=== PATIENT | female | born 1985 | race Caucasian/White ===

== ENCOUNTER → 2016-03-08 | Outpatient (CLI) | payer OTHER ==
[~2016-03-08] MED LIST: AMOXICILLIN500 MG PO; ATIVAN1 MG PO; B-1100 M1 PO; BENADRYL25 MG PO; CALCIUM600 MG PO; CIPRO500 MG PO; CLARITIN10 MG PO; FISH OIL 10001000 MG PO; FLAGYL500 MG PO; FLUCONAZOLE100 MG PO; FLUOXETINE HYDR20 M1 PO; LAMOTRIGINE100 MG PO; MAGNESIUM; MEDROL DOSEPAK4 MG PO; METFORMIN HCL500 MG PO; METFORMIN HYDR500 MG PO; METHYLPHENIDATE10 M3 PO; MULTIVITAMIN FO1 CAP PO; NKHM; PENICILLIN VK500 MG PO; PEPCID20 MG PO; POTASSIUM OTC; PROZAC10 MG PO; SEROQUEL50 MG PO; SPIRONOLACTONE50 M1 PO; STEROID CREAM; VICODIN 5/500 505 MG PO; VISTARIL25 MG PO; XANAX0.25 MG PO; ZOFRAN ODT4 MG SL
== END | disposition home or self-care (01) ==
LOC: US 08:45
DX: Z34.02 Encounter for supervision of normal first pregnancy, second trimester (principal); Z3A.20 20 weeks gestation of pregnancy

== ENCOUNTER → 2016-05-19 | Day surgery (SDC) | payer OTHER | END | disposition home or self-care (01) | LOC: SDC 05-13 12:30 → MAMMO 01:55 → SDC 13:00 | DX: C50.911 Malignant neoplasm of unspecified site of right female breast (principal); Z17.0 Estrogen receptor positive status [ER+]; F17.210 Nicotine dependence, cigarettes, uncomplicated; Z80.3 Family history of malignant neoplasm of breast; Z80.8 Family history of malignant neoplasm of other organs or systems ==

== ENCOUNTER 2016-10-03 15:06 | Emergency (ER) | payer OTHER ==
[~2016-10-03] VITALS: Ht 172.7 cm; Wt 81.6 kg
[2016-10-03 15:44] LABS: BILIRUBIN NEGATIVE (NEGATIVE); BLOOD NEGATIVE (NEGATIVE); CLARITY CLEAR (CLEAR); COLOR YELLOW (YELLOW); GLUCOSE NEGATIVE (NEGATIVE); KETONE NEGATIVE (NEGATIVE); LEUKO ESTERASE NEGATIVE (NEGATIVE); NITRITE NEGATIVE (NEGATIVE); PH 6.5 (5.0-9.0); PROTEIN NEGATIVE (NEGATIVE); SPECIFIC GRAVITY 1.015 (1.005-1.030); UROBILINOGEN 0.2 E.U./dl (0.2-1.0)
[2016-10-03 16:00] LABS: BACTERIA TRACE; MUCOUS 2+
[2016-10-03 16:03] LABS: URINE REFLEX COMMENT NO (NO)
[2016-10-03 16:08] LABS: BASO # 0.1 10*3/uL (0.0-0.1); BASO % 0.9 % (0.0-1.0); EOS # 0.1 10*3/uL (0.0-0.4); EOS % 1.1 % (1.0-4.0); HEMATOCRIT 44.8 % (37.0-47.0); HEMOGLOBIN 15.2 g/dl (12.0-16.0); LYMPH # 2.3 10*3/uL (1.3-4.4); LYMPH % 33.2 % (27.0-41.0); MEAN CELL VOLUME 92.6 fl (81.0-99.0); MEAN CORPUSCULAR HGB 31.4 pg (27.0-31.0); MEAN CORPUSCULAR HGB CONC 33.9 g/dl (33.0-37.0); MEAN PLATELET VOLUME 9.5 fl (9.6-12.3); MONO # 0.6 10*3/uL (0.1-1.0); MONO % 8.2 % (3.0-9.0); NEUT % 56.5 % (47.0-73.0); PLATELET COUNT AUTOMATED 353 10*3/uL (130-400); RED BLOOD COUNT 4.84 10*6/uL (4.10-5.10); RED CELL DISTRI WIDTH 13.1 % (0-14.5)
[2016-10-03 16:31] LABS: ALBUMIN 3.6 gm/dl (3.1-4.5); ALKALINE PHOSPHATASE 111 U/L (45-117); BILIRUBIN, TOTAL 0.5 mg/dl (0.2-1.0); BUN 7 mg/dl (7-24); CARBON DIOXIDE 27 mmol/L (21-32); CHLORIDE 104 mmol/L (98-107); EST GLOM FILT AFRICAN AMERICAN > 60 ml/min; GLUCOSE 88 mg/dL (65-99); SGOT/AST 19 IU/L (3-35); SGPT/ALT 32 U/L (12-78); SODIUM 138 mmol/L (136-145); TOTAL PROTEIN 7.8 gm/dL (6.4-8.2)
== END 2016-10-03 18:09 | disposition home or self-care (01) ==
LOC: ED 15:06
PROVIDERS: Nurse Practitioner Family
DX: A59.9 Trichomoniasis, unspecified (principal); R03.0 Elevated blood-pressure reading, without diagnosis of hypertension; R51 Headache; H53.8 Other visual disturbances; M25.531 Pain in right wrist; M25.532 Pain in left wrist; F17.200 Nicotine dependence, unspecified, uncomplicated; Z88.2 Allergy status to sulfonamides

== ENCOUNTER → 2016-10-17 | Outpatient (CLI) | payer OTHER | END | disposition home or self-care (01) | LOC: ORTHO 02:09 | DX: M25.532 Pain in left wrist (principal) ==

== ENCOUNTER → 2017-01-30 | Outpatient (CLI) | payer OTHER | END | disposition home or self-care (01) | LOC: LAB 16:04 | DX: M79.602 Pain in left arm (principal); C50.011 Malignant neoplasm of nipple and areola, right female breast; Z17.0 Estrogen receptor positive status [ER+] ==

== ENCOUNTER 2017-07-30 20:31 | Emergency (ER) | payer OTHER ==
[~2017-07-30] VITALS: Ht 172.7 cm; Wt 86.2 kg
[2017-07-30] MEDS ORDERED: ATARAX,VISTARIL50 MG PO (20:47)
== END 2017-07-30 20:48 | disposition home or self-care (01) ==
LOC: ED 20:31
DX: S80.861A Insect bite (nonvenomous), right lower leg, initial encounter (principal); Z88.2 Allergy status to sulfonamides; W57.XXXA Bitten or stung by nonvenomous insect and other nonvenomous arthropods, initial encounter; Y93.89 Activity, other specified; Y92.89 Other specified places as the place of occurrence of the external cause; Y99.8 Other external cause status

== ENCOUNTER → 2017-09-28 | Outpatient (CLI) | payer OTHER ==
[~2017-09-28] MED LIST changes: +ATARAX,VISTARIL50 MG PO; +PNV PRENATAL P1 EACH PO; +TAMOXIFEN CITRA20 MG PO
[2017-09-28 11:13] LABS: HEMOGLOBIN 13.1 g/dl (12.0-16.0); MEAN CELL VOLUME 93.9 fl (81.0-99.0); MEAN CORPUSCULAR HGB 30.8 pg (27.0-31.0); MEAN CORPUSCULAR HGB CONC 32.8 g/dl (33.0-37.0); RED BLOOD COUNT 4.26 10*6/uL (4.10-5.10); RED CELL DISTRI WIDTH 12.1 % (0-14.5); WHITE BLOOD COUNT 4.2 10*3/uL (4.8-10.8)
[2017-09-28 11:24] LABS: ALBUMIN 3.4 gm/dl (3.1-4.5); ALKALINE PHOSPHATASE 82 U/L (45-117); BUN 5 mg/dl (7-24); CHLORIDE 106 mmol/L (98-107); CHOLESTEROL 151 mg/dL (<200); CREATININE 0.79 mg/dL (0.55-1.02); HDL CHOLESTEROL 46 mg/dl (40-60); LDL CHOLESTEROL 79 mg/dL (9-159); POTASSIUM 3.8 mmol/L (3.5-5.1); SGOT/AST 21 IU/L (3-35); SGPT/ALT 23 U/L (12-78); SODIUM 140 mmol/L (136-145); TOTAL PROTEIN 7.1 gm/dL (6.4-8.2); TRIGLYCERIDES 129 mg/dl (<150); VLDL CHOLESTEROL 26 mg/dL (6-40)
[2017-09-28 12:50] LABS: VITAMIN D, 25-HYDROXY 24.7 ng/mL (30-100)
[2017-09-29 08:11] LABS: RHEUMATOID ARTHRITIS FACTOR <10.0 IU/mL (0.0-13.9)
== END | disposition home or self-care (01) ==
LOC: LAB 10:16
PROVIDERS: Family Medicine
DX: E55.9 Vitamin D deficiency, unspecified (principal); M79.1 Myalgia; M25.50 Pain in unspecified joint; F19.10 Other psychoactive substance abuse, uncomplicated; Z85.3 Personal history of malignant neoplasm of breast

== ENCOUNTER → 2017-11-27 | Outpatient (CLI) | payer OTHER | END | disposition home or self-care (01) | LOC: MRI 11-04 15:00 | DX: E22.9 Hyperfunction of pituitary gland, unspecified (principal) ==

== ENCOUNTER → 2017-12-08 | Outpatient (CLI) | payer SELFPAY ==
[2017-12-08 15:55] LABS: HEMATOCRIT 42.7 % (37.0-47.0); HEMOGLOBIN 14.3 g/dl (12.0-16.0); MEAN CELL VOLUME 93.6 fl (81.0-99.0); MEAN CORPUSCULAR HGB 31.4 pg (27.0-31.0); MEAN CORPUSCULAR HGB CONC 33.5 g/dl (33.0-37.0); RED BLOOD COUNT 4.56 10*6/uL (4.10-5.10); RED CELL DISTRI WIDTH 12.3 % (0-14.5); WHITE BLOOD COUNT 5.8 10*3/uL (4.8-10.8)
[2017-12-08 16:06] LABS: ALBUMIN 3.8 gm/dl (3.1-4.5); ALKALINE PHOSPHATASE 90 U/L (45-117); BUN 11 mg/dl (7-24); CHLORIDE 110 mmol/L (98-107); CHOLESTEROL 186 mg/dL (<200); CREATININE 0.91 mg/dL (0.55-1.02); HDL CHOLESTEROL 41 mg/dl (40-60); LDL CHOLESTEROL 105 mg/dL (9-159); POTASSIUM 3.7 mmol/L (3.5-5.1); SGOT/AST 24 IU/L (3-35); SGPT/ALT 28 U/L (12-78); SODIUM 142 mmol/L (136-145); TOTAL PROTEIN 8.2 gm/dL (6.4-8.2); TRIGLYCERIDES 201 mg/dl (<150); VLDL CHOLESTEROL 40 mg/dL (6-40)
[2017-12-08 16:08] LABS: FREE T4 0.93 ng/dl (0.76-1.46)
[2017-12-08 16:42] LABS: VITAMIN D, 25-HYDROXY 19.7 ng/mL (30-100)
== END | disposition home or self-care (01) ==
LOC: LAB 15:22
PROVIDERS: Family Medicine
DX: E78.00 Pure hypercholesterolemia, unspecified (principal); E55.9 Vitamin D deficiency, unspecified; R53.83 Other fatigue; R06.02 Shortness of breath

== ENCOUNTER 2018-04-09 14:14 | Emergency (ER) | payer OTHER ==
[~2018-04-09] VITALS: Ht 172.7 cm; Wt 83.9 kg
--- NOTE | ~2018-04-09 | EKG ---
[place], [place] ELECTROCARDIOGRAM REPORT NAME: SREE CARRINGTON UNIT #: [id number] ROOM: DOCTOR: EPIPHANY DRAFT REPORT BIRTHDATE: [birth year] [facility] Test Date: 2018-04-09 Test Time: 14:16:56 Pat Name: SREE CARRINGTON Department: ED Room: Gender: F [employer] Driver: Sabrina Rowland : 1985 Requested By: SRAVANTHI DE LUNA Order Number: [id number] Reading MD: Jose Duque Measurements Intervals [place] Rate: 102 P: 33 GA: 160 QRS: 3 QRSD: 82 T: 25 QT: 356 QTc: 464 Interpretive Statements Sinus tachycardia Probable left atrial enlargement Low voltage, precordial leads Compared to ECG 10/18/2017 15:35:41 Electronically Signed On 04-16-2018 7:13:08 PST by Jose Duque CM:EKGRPT:ELECTROCARDIOGRAM REPORT 1416 0713 SRAVANTHI DE LUNA EPIPHANY DRAFT REPORT SRAVANTHI DE LUNA
[2018-04-09 15:33] LABS: BASO % 0.8 % (0.0-1.0); EOS % 0.2 % (1.0-4.0); HEMOGLOBIN 13.4 g/dl (12.0-16.0); LYMPH # 1.4 10*3/uL (1.3-4.4); LYMPH % 29.1 % (27.0-41.0); MEAN CELL VOLUME 95.4 fl (81.0-99.0); MEAN CORPUSCULAR HGB 32.8 pg (27.0-31.0); MEAN CORPUSCULAR HGB CONC 34.4 g/dl (33.0-37.0); MEAN PLATELET VOLUME 9.7 fl (9.6-12.3); MONO # 0.3 10*3/uL (0.1-1.0); MONO % 6.4 % (3.0-9.0); NEUT # 3.1 10*3/uL (2.3-7.9); NEUT % 63.3 % (47.0-73.0); PLATELET COUNT AUTOMATED 283 10*3/uL (130-400); RED BLOOD COUNT 4.09 10*6/uL (4.10-5.10); RED CELL DISTRI WIDTH 13.1 % (0-14.5); WHITE BLOOD COUNT 4.9 10*3/uL (4.8-10.8)
[2018-04-09 15:43] LABS: ACT PARTIAL THROMBO TIME 21.4 SECONDS (20.8-31.5); INTERNATIONAL NORM RATIO 0.9 (2.0-3.5)
[2018-04-09 15:51] LABS: ALBUMIN 3.3 gm/dl (3.1-4.5); ALKALINE PHOSPHATASE 83 U/L (45-117); BUN 5 mg/dl (7-24); CHLORIDE 113 mmol/L (98-107); CREATININE 0.88 mg/dL (0.55-1.02); POTASSIUM 3.8 mmol/L (3.5-5.1); SGOT/AST 16 IU/L (3-35); SGPT/ALT 20 U/L (12-78); SODIUM 145 mmol/L (136-145); TOTAL PROTEIN 7.2 gm/dL (6.4-8.2)
[2018-04-09 15:52] LABS: TROPONIN I < 0.015 ng/ml (<0.045)
== END 2018-04-09 16:30 | disposition left against medical advice (07) ==
LOC: ED 14:14
PROVIDERS: Nurse Practitioner Family
DX: R06.02 Shortness of breath (principal); R07.9 Chest pain, unspecified; Z85.3 Personal history of malignant neoplasm of breast; Z88.2 Allergy status to sulfonamides; Z79.899 Other long term (current) drug therapy

== ENCOUNTER → 2018-07-05 | Outpatient (CLI) | payer OTHER ==
[~2018-07-05] MED LIST changes: +CEFDINIR300 MG PO; +NEURONTIN300 MG PO; +TESSALON PERLE100 M1 PO; +VIBRAMYCIN100 MG PO
== END | disposition home or self-care (01) ==
LOC: RAD 13:34
DX: R05 Cough (principal); R06.02 Shortness of breath

== ENCOUNTER 2018-07-10 00:57 | Emergency (ER) | payer OTHER ==
[~2018-07-10] VITALS: Wt 79.4 kg
[~2018-07-10 00:57] MED LIST changes: -CEFDINIR300 MG PO; -NEURONTIN300 MG PO; -TESSALON PERLE100 M1 PO; -VIBRAMYCIN100 MG PO
[2018-07-10] MEDS ORDERED: CEFDINIR300 MG PO (01:09)
[2018-07-10] MEDS ORDERED: NEURONTIN300 MG PO (01:09)
[2018-07-10] MEDS ORDERED: TESSALON PERLE100 M1 PO (01:26)
[2018-07-10] MEDS ORDERED: CIPRO500 MG PO (01:26)
[2018-07-10] MEDS ORDERED: CLARITIN10 MG PO (01:26)
[2018-07-31] MEDS ORDERED: VIBRAMYCIN100 MG PO (16:15)
== END 2018-07-10 01:31 | disposition home or self-care (01) ==
LOC: ED 00:57
DX: S40.861A Insect bite (nonvenomous) of right upper arm, initial encounter (principal); L08.9 Local infection of the skin and subcutaneous tissue, unspecified; J32.9 Chronic sinusitis, unspecified; Z88.2 Allergy status to sulfonamides; Z79.899 Other long term (current) drug therapy; Z79.2 Long term (current) use of antibiotics; W57.XXXA Bitten or stung by nonvenomous insect and other nonvenomous arthropods, initial encounter; Y93.89 Activity, other specified; Y92.89 Other specified places as the place of occurrence of the external cause; Y99.8 Other external cause status

== ENCOUNTER 2018-09-06 13:45 | Emergency (ER) | payer OTHER ==
[~2018-09-06] VITALS: Wt 68.0 kg
--- NOTE | ~2018-09-06 | EKG ---
[place], [place] ELECTROCARDIOGRAM REPORT NAME: SREE CARRINGTON UNIT #: [id number] ROOM: DOCTOR: EPIPHANY DRAFT REPORT BIRTHDATE: [birth year] [facility] Test Date: 2018-09-06 Test Time: 14:28:23 Pat Name: SREE CARRINGTON Department: Room: Gender: F Drain Cleaner Plumber: : 1985 Requested By: LUNA BURNS Order Number: [id number] Reading MD: Taran Nava MD Measurements Intervals [place] Rate: 98 P: 48 ID: 142 QRS: -4 QRSD: 84 T: 29 QT: 352 QTc: 450 Interpretive Statements Sinus rhythm Low voltage, precordial leads Compared to ECG 04/09/2018 14:16:56 Sinus tachycardia no longer present Electronically Signed On 09-07-2018 4:28:05 PDT by Taran Nava MD CM:EKGRPT:ELECTROCARDIOGRAM REPORT 1428 0428 LUNA MCKEON DRAFT REPORT LUNA BURNS DO
[~2018-09-06 13:45] MED LIST changes: +CEFDINIR300 MG PO; +NEURONTIN300 MG PO; +TESSALON PERLE100 M1 PO; +VIBRAMYCIN100 MG PO
[2018-09-06 14:05] LABS: BILIRUBIN NEGATIVE (NEGATIVE); BLOOD 1+ (NEGATIVE); CLARITY CLEAR (CLEAR); COLOR YELLOW (YELLOW); GLUCOSE NEGATIVE (NEGATIVE); KETONE NEGATIVE (NEGATIVE); LEUKO ESTERASE NEGATIVE (NEGATIVE); NITRITE NEGATIVE (NEGATIVE); PH 5.5 (5.0-9.0); SPECIFIC GRAVITY <= 1.005 (1.005-1.030); UROBILINOGEN 0.2 E.U./dl (0.2-1.0)
[2018-09-06 14:11] LABS: BACTERIA 1+; WBC 0-2 wbc/hpf (0-5)
[2018-09-06 14:18] LABS: URINE AMPHETAMINES < 1000 (1000ng/ml); URINE BARBITURATES < 200 (200ng/ml); URINE BENZODIAZEPINES < 200 (200ng/ml); URINE CANNABINOIDS (THC) > 50 (50ng/ml); URINE COCAINE < 300 (300ng/ml); URINE METHADONE < 300 (300ng/ml); URINE OPIATES < 300 (300ng/ml)
[2018-09-06 14:19] LABS: URINE PHENCYCLIDINE < 25 (25ng/ml)
[2018-09-06 14:37] LABS: BASO % 0.4 % (0.0-1.0); EOS # 0.1 10*3/uL (0.0-0.4); EOS % 0.9 % (1.0-4.0); HEMATOCRIT 43.4 % (37.0-47.0); HEMOGLOBIN 14.2 g/dl (12.0-16.0); LYMPH # 1.8 10*3/uL (1.3-4.4); LYMPH % 25.9 % (27.0-41.0); MEAN CELL VOLUME 95.8 fl (81.0-99.0); MEAN CORPUSCULAR HGB 31.3 pg (27.0-31.0); MEAN CORPUSCULAR HGB CONC 32.7 g/dl (33.0-37.0); MEAN PLATELET VOLUME 9.6 fl (9.6-12.3); MONO # 0.4 10*3/uL (0.1-1.0); MONO % 5.5 % (3.0-9.0); NEUT # 4.6 10*3/uL (2.3-7.9); PLATELET COUNT AUTOMATED 402 10*3/uL (130-400); RED BLOOD COUNT 4.53 10*6/uL (4.10-5.10); RED CELL DISTRI WIDTH 13.8 % (0-14.5); WHITE BLOOD COUNT 6.9 10*3/uL (4.8-10.8)
[2018-09-06 14:54] LABS: ACETAMINOPHEN (TYLENOL) < 5.0 ug/ml (10-30); ACT PARTIAL THROMBO TIME 23.9 SECONDS (20.0-32.1); ALBUMIN 3.7 gm/dl (3.1-4.5); ALKALINE PHOSPHATASE 122 U/L (45-117); BUN 6 mg/dl (7-24); CHLORIDE 112 mmol/L (98-107); CREATININE 0.81 mg/dL (0.55-1.02); INTERNATIONAL NORM RATIO 0.9 (2.0-3.5); POTASSIUM 3.8 mmol/L (3.5-5.1); SGOT/AST 142 IU/L (3-35); SGPT/ALT 171 U/L (12-78); SODIUM 146 mmol/L (136-145); TOTAL PROTEIN 7.8 gm/dL (6.4-8.2); TROPONIN I < 0.015 ng/ml (<0.045)
== END 2018-09-06 16:25 | disposition home or self-care (01) ==
LOC: ED 13:45
PROVIDERS: Family Medicine
DX: S00.81XA Abrasion of other part of head, initial encounter (principal); M54.2 Cervicalgia; R10.9 Unspecified abdominal pain; Z88.2 Allergy status to sulfonamides; V89.2XXA Person injured in unspecified motor-vehicle accident, traffic, initial encounter; Y93.89 Activity, other specified; Y92.89 Other specified places as the place of occurrence of the external cause; Y99.8 Other external cause status

== ENCOUNTER → 2020-07-04 | Outpatient (CLI) | payer OTHER ==
[2020-07-04 12:07] LABS: HEMATOCRIT 40.9 % (37.0-47.0); MEAN CELL VOLUME 92.7 fl (81.0-99.0); MEAN CORPUSCULAR HGB 30.4 pg (27.0-31.0); MEAN CORPUSCULAR HGB CONC 32.8 g/dl (33.0-37.0); MEAN PLATELET VOLUME 9.2 fl (9.6-12.3); RED BLOOD COUNT 4.41 10*6/uL (4.10-5.10); RED CELL DISTRI WIDTH 12.5 % (0-14.5); WHITE BLOOD COUNT 9.1 10*3/uL (4.8-10.8)
[2020-07-04 12:46] LABS: CHLORIDE 105 mmol/L (98-107); POTASSIUM 3.7 mmol/L (3.5-5.1); SODIUM 139 mmol/L (136-145)
[2020-07-04 13:06] LABS: ALBUMIN 3.5 gm/dl (3.1-4.5); ALKALINE PHOSPHATASE 84 U/L (45-117); BUN 8 mg/dl (7-24); CHOLESTEROL 189 mg/dL (<200); CREATININE 0.93 mg/dL (0.55-1.02); LDL CHOLESTEROL 104 mg/dL (9-159); SGOT/AST 19 IU/L (3-35); SGPT/ALT 38 U/L (12-78); TOTAL PROTEIN 8.2 gm/dL (6.4-8.2); TRIGLYCERIDES 111 mg/dl (<150)
== END | disposition home or self-care (01) ==
LOC: LAB 11:13
PROVIDERS: ATTEND Family Medicine
DX: Z13.220 Encounter for screening for lipoid disorders (principal); J40 Bronchitis, not specified as acute or chronic; C50.919 Malignant neoplasm of unspecified site of unspecified female breast; R05 Cough; E74.00 Glycogen storage disease, unspecified; F41.1 Generalized anxiety disorder

== ENCOUNTER 2020-09-24 21:13 | Emergency (ER) | payer OTHER ==
[~2020-09-24] VITALS: Ht 167.6 cm; Wt 90.7 kg
== END 2020-09-24 23:04 | disposition home or self-care (01) ==
LOC: ED 21:13
DX: R53.83 Other fatigue (principal); Z53.29 Procedure and treatment not carried out because of patient's decision for other reasons; Z85.3 Personal history of malignant neoplasm of breast; Z88.2 Allergy status to sulfonamides; Z79.2 Long term (current) use of antibiotics; Z79.899 Other long term (current) drug therapy

== ENCOUNTER 2020-11-02 22:43 | Emergency (ER) | payer OTHER ==
[~2020-11-02] VITALS: Ht 167.6 cm; Wt 98.1 kg
[2020-11-02 23:40] LABS: BASO # 0.1 10*3/uL (0.0-0.1); BASO % 0.3 % (0.0-1.0); EOS # 0.1 10*3/uL (0.0-0.4); EOS % 0.3 % (1.0-4.0); HEMATOCRIT 41.2 % (37.0-47.0); LYMPH # 2.1 10*3/uL (1.3-4.4); LYMPH % 9.7 % (27.0-41.0); MEAN CELL VOLUME 92.6 fl (81.0-99.0); MEAN CORPUSCULAR HGB 30.3 pg (27.0-31.0); MEAN CORPUSCULAR HGB CONC 32.8 g/dl (33.0-37.0); MEAN PLATELET VOLUME 9.1 fl (9.6-12.3); MONO # 1.1 10*3/uL (0.1-1.0); MONO % 5.2 % (3.0-9.0); NEUT # 17.9 10*3/uL (2.3-7.9); PLATELET COUNT AUTOMATED 439 10*3/uL (130-400); RED BLOOD COUNT 4.45 10*6/uL (4.10-5.10); RED CELL DISTRI WIDTH 12.8 % (0-14.5); WHITE BLOOD COUNT 21.3 10*3/uL (4.8-10.8)
[2020-11-02 23:57] LABS: ALBUMIN 3.7 gm/dl (3.1-4.5); CREATININE 1.3 mg/dL (0.55-1.02); POTASSIUM 4.1 mmol/L (3.5-5.1); TOTAL PROTEIN 8.8 gm/dL (6.4-8.2)
[2020-11-03 04:09] LABS: BILIRUBIN Negative (Negative); BLOOD Negative (Negative); CLARITY Clear (Clear); COLOR Yellow (Yellow); GLUCOSE Negative (Negative); KETONE 3+ (Negative); LEUKO ESTERASE Negative (Negative); NITRITE Negative (Negative); SPECIFIC GRAVITY 1.025 (1.001-1.030)
[2020-11-03 04:18] LABS: URINE AMPHETAMINES < 1000 (1000ng/ml); URINE BARBITURATES < 200 (200ng/ml); URINE BENZODIAZEPINES < 200 (200ng/ml); URINE CANNABINOIDS (THC) < 50 (50ng/ml); URINE COCAINE > 300 (300ng/ml); URINE METHADONE < 300 (300ng/ml); URINE OPIATES < 300 (300ng/ml); URINE PHENCYCLIDINE < 25 (25ng/ml)
[2020-11-03 04:20] LABS: WBC 0-2 wbc/hpf (0-5)
== END 2020-11-03 05:07 | disposition home or self-care (01) ==
LOC: ED 22:43
PROVIDERS: Emergency Medicine
DX: T50.901A Poisoning by unspecified drugs, medicaments and biological substances, accidental (unintentional), initial encounter (principal); D72.829 Elevated white blood cell count, unspecified; Z88.2 Allergy status to sulfonamides; F41.9 Anxiety disorder, unspecified; Z79.2 Long term (current) use of antibiotics; Z79.899 Other long term (current) drug therapy; Z90.89 Acquired absence of other organs; Z85.3 Personal history of malignant neoplasm of breast; Y92.89 Other specified places as the place of occurrence of the external cause

== ENCOUNTER → 2021-08-16 | Outpatient (CLI) | payer OTHER | END | disposition home or self-care (01) | LOC: CARD 12:52 | PROVIDERS: ATTEND Internal Medicine Hematology & Oncology | DX: C50.919 Malignant neoplasm of unspecified site of unspecified female breast (principal) ==

== ENCOUNTER → 2021-09-10 | Outpatient (CLI) | payer OTHER | LOC: CARD 13:31 | PROVIDERS: ATTEND Internal Medicine Hematology & Oncology | DX: C50.919 Malignant neoplasm of unspecified site of unspecified female breast (principal); I51.7 Cardiomegaly ==

== ENCOUNTER → 2021-09-24 | Outpatient (CLI) | payer OTHER | END | disposition home or self-care (01) | LOC: CARD 14:39 | PROVIDERS: ATTEND Internal Medicine Hematology & Oncology | DX: C50.919 Malignant neoplasm of unspecified site of unspecified female breast (principal); R94.31 Abnormal electrocardiogram [ECG] [EKG] ==

== ENCOUNTER → 2021-10-30 | Outpatient (CLI) | payer OTHER | END | disposition home or self-care (01) | LOC: CARD 08:36 | PROVIDERS: ATTEND Internal Medicine Hematology & Oncology | DX: C50.919 Malignant neoplasm of unspecified site of unspecified female breast (principal) ==

== ENCOUNTER → 2021-11-27 | Outpatient (CLI) | payer OTHER | END | disposition home or self-care (01) | LOC: CARD 10:28 | PROVIDERS: ATTEND Internal Medicine Hematology & Oncology | DX: C50.919 Malignant neoplasm of unspecified site of unspecified female breast (principal) ==

== ENCOUNTER → 2022-03-29 | Outpatient (CLI) | payer OTHER | END | disposition home or self-care (01) | LOC: RAD 10:13 | PROVIDERS: ATTEND Family Medicine | DX: R06.02 Shortness of breath (principal); R05.9 Cough, unspecified; R06.00 Dyspnea, unspecified; E78.00 Pure hypercholesterolemia, unspecified; C50.919 Malignant neoplasm of unspecified site of unspecified female breast; R53.83 Other fatigue; E55.9 Vitamin D deficiency, unspecified ==

== ENCOUNTER 2022-05-14 12:01 | Emergency (ER) | payer OTHER | END 2022-05-14 14:11 | disposition left against medical advice (07) | LOC: ED 12:01 | DX: Z53.21 Procedure and treatment not carried out due to patient leaving prior to being seen by health care provider (principal) ==

== ENCOUNTER 2022-05-30 23:25 | Emergency (ER) | payer OTHER ==
[~2022-05-30] VITALS: Ht 172.7 cm; Wt 90.7 kg
[2022-05-30] MEDS ORDERED: ERYTHROMYCIN OPH1 GM OPH (23:46)
[2022-05-30] MEDS ORDERED: NAPHCON-A EYE D15 ML OP (23:46)
== END 2022-05-31 | disposition home or self-care (01) ==
LOC: ED 23:25
DX: H10.9 Unspecified conjunctivitis (principal); Z98.890 Other specified postprocedural states; F10.10 Alcohol abuse, uncomplicated; F32.A Depression, unspecified

== ENCOUNTER → 2022-06-02 | Outpatient (CLI) | payer OTHER ==
[~2022-06-02] MED LIST changes: +ERYTHROMYCIN OPH1 GM OPH; +NAPHCON-A EYE D15 ML OP
[2022-06-02 10:07] LABS: HEMATOCRIT 35.3 % (37.0-47.0); MEAN CORPUSCULAR HGB 34.1 pg (27.0-31.0); MEAN CORPUSCULAR HGB CONC 35.1 g/dl (33.0-37.0); MEAN PLATELET VOLUME 9.2 fl (9.6-12.3); RED BLOOD COUNT 3.64 10*6/uL (4.10-5.10); RED CELL DISTRI WIDTH 13.2 % (0-14.5); WHITE BLOOD COUNT 3.5 10*3/uL (4.8-10.8)
[2022-06-02 10:45] LABS: ALKALINE PHOSPHATASE 61 U/L (46-116); BUN 9 mg/dl (9-23); CHLORIDE 102 mmol/L (98-107); CHOLESTEROL 175 mg/dL (<200); FREE T4 1.18 ng/dl (0.89-1.76); LDL CHOLESTEROL 88 mg/dL (9-159); POTASSIUM 3.9 mmol/L (3.4-5.1); SGPT/ALT 12 U/L (10-49); THYROID STIM HORMONE (HS) 0.793 uIU/ml (0.550-4.780); TOTAL PROTEIN 7.5 gm/dL (6.0-8.0); TRIGLYCERIDES 118 mg/dl (<150); VITAMIN D, 25-HYDROXY 20.6 ng/mL (30-100)
== END | disposition home or self-care (01) ==
LOC: LAB 09:41
PROVIDERS: ATTEND Family Medicine
DX: Z00.00 Encounter for general adult medical examination without abnormal findings (principal); J32.9 Chronic sinusitis, unspecified; E55.9 Vitamin D deficiency, unspecified; R53.83 Other fatigue; D64.9 Anemia, unspecified; E53.8 Deficiency of other specified B group vitamins; C50.919 Malignant neoplasm of unspecified site of unspecified female breast

== ENCOUNTER → 2022-08-12 | Outpatient (CLI) | payer OTHER ==
[2022-08-12 11:59] LABS: BASO # 0.1 10*3/uL (0.0-0.1); BASO % 1.4 % (0.0-1.0); EOS % 0.3 % (1.0-4.0); HEMATOCRIT 36.3 % (37.0-47.0); LYMPH # 1.6 10*3/uL (1.3-4.4); MEAN CELL VOLUME 100.6 fl (81.0-99.0); MEAN CORPUSCULAR HGB 34.9 pg (27.0-31.0); MEAN CORPUSCULAR HGB CONC 34.7 g/dl (33.0-37.0); MEAN PLATELET VOLUME 9.2 fl (9.6-12.3); MONO # 0.2 10*3/uL (0.1-1.0); MONO % 5.7 % (3.0-9.0); NEUT # 1.8 10*3/uL (2.3-7.9); NEUT % 48.3 % (47.0-73.0); PLATELET COUNT AUTOMATED 436 10*3/uL (130-400); RED BLOOD COUNT 3.61 10*6/uL (4.10-5.10); RED CELL DISTRI WIDTH 12.9 % (0-14.5); WHITE BLOOD COUNT 3.7 10*3/uL (4.8-10.8)
[2022-08-12 12:27] LABS: ALKALINE PHOSPHATASE 71 U/L (46-116); BUN 9 mg/dl (9-23); CHLORIDE 104 mmol/L (98-107); POTASSIUM 3.7 mmol/L (3.4-5.1); SGPT/ALT 23 U/L (10-49); TOTAL PROTEIN 8.2 gm/dL (6.0-8.0)
== END | disposition home or self-care (01) ==
LOC: LAB 10:56
PROVIDERS: Internal Medicine Hematology & Oncology
DX: C50.912 Malignant neoplasm of unspecified site of left female breast (principal); C79.51 Secondary malignant neoplasm of bone; Z17.0 Estrogen receptor positive status [ER+]

== ENCOUNTER → 2022-10-14 | Outpatient (CLI) | payer OTHER ==
[2022-10-14 16:10] LABS: HEMATOCRIT 37.2 % (37.0-47.0); LYMPH % 34.2 % (27.0-41.0); MEAN CELL VOLUME 103.3 fl (81.0-99.0); MEAN CORPUSCULAR HGB 35.3 pg (27.0-31.0); MEAN CORPUSCULAR HGB CONC 34.1 g/dl (33.0-37.0); MONO # 0.2 10*3/uL (0.1-1.0); MONO % 6.2 % (3.0-9.0); NEUT # 1.7 10*3/uL (2.3-7.9); NEUT % 58.3 % (47.0-73.0); PLATELET COUNT AUTOMATED 331 10*3/uL (130-400); RED CELL DISTRI WIDTH 13.2 % (0-14.5); WHITE BLOOD COUNT 2.9 10*3/uL (4.8-10.8)
[2022-10-14 16:34] LABS: ALKALINE PHOSPHATASE 78 U/L (46-116); BUN 5 mg/dl (9-23); CHLORIDE 101 mmol/L (98-107); POTASSIUM 3.7 mmol/L (3.4-5.1); SGPT/ALT 22 U/L (10-49); TOTAL PROTEIN 7.9 gm/dL (6.0-8.0)
== END | disposition home or self-care (01) ==
LOC: LAB 15:43
PROVIDERS: ATTEND Internal Medicine Hematology & Oncology
DX: C50.919 Malignant neoplasm of unspecified site of unspecified female breast (principal)

== ENCOUNTER → 2022-10-20 | Outpatient (CLI) | payer OTHER | END | disposition home or self-care (01) | LOC: NM 10:00 | PROVIDERS: ATTEND Internal Medicine Hematology & Oncology | DX: C50.919 Malignant neoplasm of unspecified site of unspecified female breast (principal); C79.89 Secondary malignant neoplasm of other specified sites ==

== ENCOUNTER 2022-11-04 15:24 | Emergency (ER) | payer OTHER ==
[~2022-11-04] VITALS: Ht 172.7 cm; Wt 77.1 kg
[2022-11-04 16:31] LABS: HEMATOCRIT 43.9 % (37.0-47.0); MEAN CELL VOLUME 98.2 fl (81.0-99.0); MEAN CORPUSCULAR HGB 35.6 pg (27.0-31.0); MEAN CORPUSCULAR HGB CONC 36.2 g/dl (33.0-37.0); MEAN PLATELET VOLUME 8.9 fl (9.6-12.3); PLATELET COUNT AUTOMATED 489 10*3/uL (130-400); RED BLOOD COUNT 4.47 10*6/uL (4.10-5.10); RED CELL DISTRI WIDTH 13.3 % (0-14.5); WHITE BLOOD COUNT 4.7 10*3/uL (4.8-10.8)
[2022-11-04 16:33] LABS: MANUAL DIFF REFLEX YES
[2022-11-04 16:44] LABS: ACT PARTIAL THROMBO TIME 24.7 SECONDS (20.0-32.1)
[2022-11-04 17:02] LABS: ATYPICAL LYMPHS 1 % (0-0); BASOPHILS 1 % (0-1); PLATELET SUFFICIENCY HIGH (NORMAL); TOTAL CELLS COUNTED 100 #CELLS
[2022-11-04 17:03] LABS: BURR CELLS FEW; ROULEAUX SLIGHT
[2022-11-04 17:12] LABS: ALKALINE PHOSPHATASE 86 U/L (46-116); BUN 12 mg/dl (9-23); CHLORIDE 102 mmol/L (98-107); LIPASE 37 U/L (12-53); SGPT/ALT 24 U/L (10-49); TOTAL PROTEIN 9.9 gm/dL (6.0-8.0)
[2022-11-04 17:13] LABS: BETA-HCG, QUANT < 3.0 mIU/mL (3-10)
[2022-11-04 19:10] LABS: BILIRUBIN Negative (Negative); BLOOD Trace-Lysed (Negative); CLARITY Turbid (Clear); COLOR Yellow (Yellow); GLUCOSE Negative (Negative); KETONE Trace (Negative); LEUKO ESTERASE Negative (Negative); NITRITE Negative (Negative); SPECIFIC GRAVITY >= 1.030 (1.001-1.030)
[2022-11-04 19:27] LABS: BACTERIA TRACE; RBC 0-2 rbc/hpf (0-2)
[2022-11-04] MEDS ORDERED: ONDANSETRON4 MG SL (19:46)
== END 2022-11-04 21:10 | disposition home or self-care (01) ==
LOC: ED 15:24
PROVIDERS: Emergency Medicine
DX: R11.2 Nausea with vomiting, unspecified (principal); R53.1 Weakness; R10.13 Epigastric pain; F32.A Depression, unspecified; F90.9 Attention-deficit hyperactivity disorder, unspecified type; Z98.890 Other specified postprocedural states; F10.10 Alcohol abuse, uncomplicated

== ENCOUNTER → 2022-11-07 | Outpatient (CLI) | payer OTHER ==
[~2022-11-07] MED LIST changes: +KISQALI FEMARA1 EAC2 PO; +ONDANSETRON4 MG SL
== END | disposition home or self-care (01) ==
LOC: CT 10-23 11:00
PROVIDERS: ATTEND Internal Medicine Hematology & Oncology
DX: C50.919 Malignant neoplasm of unspecified site of unspecified female breast (principal); M43.8X5 Other specified deforming dorsopathies, thoracolumbar region; Z98.890 Other specified postprocedural states

== ENCOUNTER → 2022-11-12 | Outpatient (CLI) | payer OTHER ==
[~2022-11-12] MED LIST changes: -KISQALI FEMARA1 EAC2 PO
[2022-11-12 10:39] LABS: BASO % 1.4 % (0.0-1.0); EOS % 0.4 % (1.0-4.0); HEMATOCRIT 35.2 % (37.0-47.0); LYMPH # 1.2 10*3/uL (1.3-4.4); LYMPH % 42.1 % (27.0-41.0); MEAN CELL VOLUME 98.3 fl (81.0-99.0); MEAN CORPUSCULAR HGB 35.8 pg (27.0-31.0); MEAN CORPUSCULAR HGB CONC 36.4 g/dl (33.0-37.0); MEAN PLATELET VOLUME 8.7 fl (9.6-12.3); MONO # 0.3 10*3/uL (0.1-1.0); MONO % 10.4 % (3.0-9.0); NEUT # 1.3 10*3/uL (2.3-7.9); NEUT % 45.3 % (47.0-73.0); PLATELET COUNT AUTOMATED 348 10*3/uL (130-400); RED BLOOD COUNT 3.58 10*6/uL (4.10-5.10); RED CELL DISTRI WIDTH 13.4 % (0-14.5); WHITE BLOOD COUNT 2.8 10*3/uL (4.8-10.8)
[2022-11-12 11:08] LABS: ALKALINE PHOSPHATASE 62 U/L (46-116); BUN 5 mg/dl (9-23); CHLORIDE 105 mmol/L (98-107); POTASSIUM 3.7 mmol/L (3.4-5.1); SGPT/ALT 18 U/L (10-49); TOTAL PROTEIN 7.9 gm/dL (6.0-8.0)
== END | disposition home or self-care (01) ==
LOC: LAB 10:03
PROVIDERS: ATTEND Internal Medicine Hematology & Oncology
DX: Z17.0 Estrogen receptor positive status [ER+] (principal); C50.919 Malignant neoplasm of unspecified site of unspecified female breast

== ENCOUNTER 2022-11-17 20:31 | Emergency (ER) | payer OTHER ==
[~2022-11-17] VITALS: Ht 172.7 cm; Wt 81.2 kg
[2022-11-17] MEDS ORDERED: KISQALI FEMARA1 EAC2 PO (23:26)
[2022-11-18] MEDS ORDERED: VIBRAMYCIN100 MG PO (00:51)
== END 2022-11-18 01:02 | disposition home or self-care (01) ==
LOC: ED 20:31
DX: L08.9 Local infection of the skin and subcutaneous tissue, unspecified (principal); Z98.890 Other specified postprocedural states; F90.9 Attention-deficit hyperactivity disorder, unspecified type; F10.10 Alcohol abuse, uncomplicated; F32.A Depression, unspecified

== ENCOUNTER → 2022-12-10 | Outpatient (CLI) | payer OTHER ==
[~2022-12-10] MED LIST changes: +KISQALI FEMARA1 EAC2 PO
[2022-12-10 10:51] LABS: BASO # 0.1 10*3/uL (0.0-0.1); BASO % 1.7 % (0.0-1.0); EOS % 0.3 % (1.0-4.0); HEMATOCRIT 35.1 % (37.0-47.0); LYMPH # 1.5 10*3/uL (1.3-4.4); LYMPH % 42.3 % (27.0-41.0); MEAN CELL VOLUME 102.9 fl (81.0-99.0); MEAN CORPUSCULAR HGB 36.7 pg (27.0-31.0); MEAN CORPUSCULAR HGB CONC 35.6 g/dl (33.0-37.0); MEAN PLATELET VOLUME 8.5 fl (9.6-12.3); MONO # 0.4 10*3/uL (0.1-1.0); MONO % 11.4 % (3.0-9.0); NEUT # 1.5 10*3/uL (2.3-7.9); PLATELET COUNT AUTOMATED 313 10*3/uL (130-400); RED BLOOD COUNT 3.41 10*6/uL (4.10-5.10); RED CELL DISTRI WIDTH 13.8 % (0-14.5); WHITE BLOOD COUNT 3.4 10*3/uL (4.8-10.8)
[2022-12-10 11:12] LABS: ALKALINE PHOSPHATASE 61 U/L (46-116); SGPT/ALT 18 U/L (10-49); TOTAL PROTEIN 7.4 gm/dL (6.0-8.0)
== END | disposition home or self-care (01) ==
LOC: LAB 10:23
PROVIDERS: ATTEND Internal Medicine Hematology & Oncology
DX: C50.912 Malignant neoplasm of unspecified site of left female breast (principal); C50.919 Malignant neoplasm of unspecified site of unspecified female breast; C79.51 Secondary malignant neoplasm of bone

== ENCOUNTER → 2023-01-05 | Outpatient (CLI) | payer OTHER ==
[2023-01-05 16:12] LABS: BASO # 0.1 10*3/uL (0.0-0.1); BASO % 2.5 % (0.0-1.0); EOS % 0.3 % (1.0-4.0); LYMPH # 1.8 10*3/uL (1.3-4.4); MEAN CELL VOLUME 102.7 fl (81.0-99.0); MEAN CORPUSCULAR HGB 36.6 pg (27.0-31.0); MEAN CORPUSCULAR HGB CONC 35.6 g/dl (33.0-37.0); MEAN PLATELET VOLUME 8.9 fl (9.6-12.3); MONO # 0.4 10*3/uL (0.1-1.0); MONO % 11.7 % (3.0-9.0); NEUT # 1.3 10*3/uL (2.3-7.9); NEUT % 35.5 % (47.0-73.0); PLATELET COUNT AUTOMATED 412 10*3/uL (130-400); RED BLOOD COUNT 3.31 10*6/uL (4.10-5.10); RED CELL DISTRI WIDTH 14.1 % (0-14.5); WHITE BLOOD COUNT 3.7 10*3/uL (4.8-10.8)
[2023-01-05 16:38] LABS: ALKALINE PHOSPHATASE 71 U/L (46-116); SGPT/ALT 17 U/L (5-49); TOTAL PROTEIN 7.5 gm/dL (6.0-8.0)
== END | disposition home or self-care (01) ==
LOC: LAB 15:23
PROVIDERS: ATTEND Internal Medicine Hematology & Oncology
DX: C50.912 Malignant neoplasm of unspecified site of left female breast (principal); C79.51 Secondary malignant neoplasm of bone; Z17.0 Estrogen receptor positive status [ER+]

== ENCOUNTER → 2023-02-27 | Outpatient (CLI) | payer OTHER ==
[2023-02-27 10:03] LABS: BASO # 0.1 10*3/uL (0.0-0.1); BASO % 2.5 % (0.0-1.0); EOS % 0.7 % (1.0-4.0); LYMPH % 37.5 % (27.0-41.0); MEAN CORPUSCULAR HGB 34.7 pg (27.0-31.0); MEAN CORPUSCULAR HGB CONC 34.4 g/dl (33.0-37.0); MEAN PLATELET VOLUME 8.9 fl (9.6-12.3); MONO # 0.2 10*3/uL (0.1-1.0); MONO % 6.9 % (3.0-9.0); NEUT # 1.4 10*3/uL (2.3-7.9); NEUT % 52.4 % (47.0-73.0); PLATELET COUNT AUTOMATED 328 10*3/uL (130-400); RED BLOOD COUNT 3.86 10*6/uL (4.10-5.10); WHITE BLOOD COUNT 2.8 10*3/uL (4.8-10.8)
[2023-02-27 11:05] LABS: ALKALINE PHOSPHATASE 84 U/L (46-116); BUN 7 mg/dl (9-23); CHLORIDE 106 mmol/L (98-107); CHOLESTEROL 197 mg/dL (<200); FREE T4 1.09 ng/dl (0.89-1.76); LDL CHOLESTEROL 100 mg/dL (9-159); POTASSIUM 3.8 mmol/L (3.4-5.1); SGPT/ALT 24 U/L (5-49); TOTAL PROTEIN 8.2 gm/dL (6.0-8.0); TRIGLYCERIDES 124 mg/dl (<150)
== END | disposition home or self-care (01) ==
LOC: LAB 09:27
PROVIDERS: Internal Medicine Hematology & Oncology; ATTEND Family Medicine
DX: C50.912 Malignant neoplasm of unspecified site of left female breast (principal); C79.51 Secondary malignant neoplasm of bone; Z17.0 Estrogen receptor positive status [ER+]

== ENCOUNTER → 2023-03-05 | Outpatient (CLI) | payer OTHER | END | disposition home or self-care (01) | LOC: LAB 11:07 | PROVIDERS: ATTEND Family Medicine | DX: Z11.9 Encounter for screening for infectious and parasitic diseases, unspecified (principal) ==

== ENCOUNTER → 2023-03-10 | Outpatient (CLI) | payer OTHER ==
[2023-03-10 13:06] LABS: BASO # 0.1 10*3/uL (0.0-0.1); BASO % 1.3 % (0.0-1.0); EOS # 0.1 10*3/uL (0.0-0.4); EOS % 1.8 % (1.0-4.0); LYMPH # 1.3 10*3/uL (1.3-4.4); LYMPH % 28.8 % (27.0-41.0); MEAN CELL VOLUME 103.5 fl (81.0-99.0); MEAN CORPUSCULAR HGB 34.8 pg (27.0-31.0); MEAN CORPUSCULAR HGB CONC 33.7 g/dl (33.0-37.0); MEAN PLATELET VOLUME 8.8 fl (9.6-12.3); MONO # 0.4 10*3/uL (0.1-1.0); MONO % 8.6 % (3.0-9.0); NEUT # 2.7 10*3/uL (2.3-7.9); NEUT % 59.5 % (47.0-73.0); PLATELET COUNT AUTOMATED 397 10*3/uL (130-400); RED BLOOD COUNT 3.96 10*6/uL (4.10-5.10); RED CELL DISTRI WIDTH 12.4 % (0-14.5); WHITE BLOOD COUNT 4.5 10*3/uL (4.8-10.8)
[2023-03-10 13:26] LABS: ALKALINE PHOSPHATASE 83 U/L (46-116); BUN 6 mg/dl (9-23); CHLORIDE 104 mmol/L (98-107); SGPT/ALT 28 U/L (5-49); TOTAL PROTEIN 8.5 gm/dL (6.0-8.0)
== END | disposition home or self-care (01) ==
LOC: LAB 12:44
PROVIDERS: ATTEND Internal Medicine Hematology & Oncology
DX: C50.912 Malignant neoplasm of unspecified site of left female breast (principal); C79.51 Secondary malignant neoplasm of bone; Z17.0 Estrogen receptor positive status [ER+]

== ENCOUNTER → 2023-03-17 | Outpatient (CLI) | payer OTHER ==
[2023-03-17 10:31] LABS: BASO # 0.1 10*3/uL (0.0-0.1); BASO % 1.6 % (0.0-1.0); EOS % 1.1 % (1.0-4.0); HEMATOCRIT 37.9 % (37.0-47.0); LYMPH # 1.9 10*3/uL (1.3-4.4); LYMPH % 50.1 % (27.0-41.0); MEAN CELL VOLUME 101.6 fl (81.0-99.0); MEAN CORPUSCULAR HGB 34.6 pg (27.0-31.0); MEAN PLATELET VOLUME 9.6 fl (9.6-12.3); MONO # 0.3 10*3/uL (0.1-1.0); MONO % 7.1 % (3.0-9.0); NEUT # 1.5 10*3/uL (2.3-7.9); NEUT % 39.8 % (47.0-73.0); PLATELET COUNT AUTOMATED 339 10*3/uL (130-400); RED BLOOD COUNT 3.73 10*6/uL (4.10-5.10); RED CELL DISTRI WIDTH 11.9 % (0-14.5); WHITE BLOOD COUNT 3.8 10*3/uL (4.8-10.8)
[2023-03-17 11:13] LABS: ALKALINE PHOSPHATASE 72 U/L (46-116); CHLORIDE 102 mmol/L (98-107); POTASSIUM 4.1 mmol/L (3.4-5.1); SGPT/ALT 26 U/L (5-49); TOTAL PROTEIN 7.8 gm/dL (6.0-8.0)
[2023-03-17 11:22] LABS: BUN < 5 mg/dl (9-23)
== END | disposition home or self-care (01) ==
LOC: LAB 10:00
PROVIDERS: ATTEND Internal Medicine Hematology & Oncology
DX: C50.912 Malignant neoplasm of unspecified site of left female breast (principal); C50.019 Malignant neoplasm of nipple and areola, unspecified female breast; C79.51 Secondary malignant neoplasm of bone; Z17.0 Estrogen receptor positive status [ER+]

== ENCOUNTER → 2023-03-24 | Outpatient (CLI) | payer OTHER ==
[2023-03-24 15:57] LABS: BASO # 0.1 10*3/uL (0.0-0.1); EOS # 0.1 10*3/uL (0.0-0.4); EOS % 1.9 % (1.0-4.0); HEMATOCRIT 39.1 % (37.0-47.0); LYMPH # 2.5 10*3/uL (1.3-4.4); LYMPH % 47.1 % (27.0-41.0); MEAN CORPUSCULAR HGB 34.2 pg (27.0-31.0); MEAN CORPUSCULAR HGB CONC 34.5 g/dl (33.0-37.0); MEAN PLATELET VOLUME 9.5 fl (9.6-12.3); MONO # 0.6 10*3/uL (0.1-1.0); MONO % 10.5 % (3.0-9.0); NEUT # 2.1 10*3/uL (2.3-7.9); NEUT % 39.1 % (47.0-73.0); PLATELET COUNT AUTOMATED 355 10*3/uL (130-400); RED BLOOD COUNT 3.95 10*6/uL (4.10-5.10); RED CELL DISTRI WIDTH 11.7 % (0-14.5); WHITE BLOOD COUNT 5.3 10*3/uL (4.8-10.8)
[2023-03-24 16:29] LABS: ALKALINE PHOSPHATASE 75 U/L (46-116); BUN 7 mg/dl (9-23); CHLORIDE 103 mmol/L (98-107); SGPT/ALT 40 U/L (5-49); TOTAL PROTEIN 7.4 gm/dL (6.0-8.0)
== END | disposition home or self-care (01) ==
LOC: LAB 15:35
PROVIDERS: ATTEND Internal Medicine Hematology & Oncology
DX: C50.912 Malignant neoplasm of unspecified site of left female breast (principal); C79.51 Secondary malignant neoplasm of bone; Z17.0 Estrogen receptor positive status [ER+]

== ENCOUNTER 2023-05-24 19:09 | Emergency (ER) | payer OTHER ==
[~2023-05-24] VITALS: Ht 172.7 cm; Wt 83.9 kg
[2023-05-24] MEDS ORDERED: Tdap Vaccine 0.5 ML SYR (Adult Vaccine) IM ONE (19:20)
[2023-05-24] MEDS ORDERED: ACETAMINOPHEN 325 MG TAB PO ONE (19:50)
[2023-05-24] MEDS ORDERED: CEPHALEXIN500 M1 PO (21:13)
== END 2023-05-24 21:27 | disposition home or self-care (01) ==
LOC: ED 19:09
DX: S91.311A Laceration without foreign body, right foot, initial encounter (principal); F90.9 Attention-deficit hyperactivity disorder, unspecified type; F32.A Depression, unspecified; F10.10 Alcohol abuse, uncomplicated; Z98.890 Other specified postprocedural states; W25.XXXA Contact with sharp glass, initial encounter; Y93.89 Activity, other specified; Y92.89 Other specified places as the place of occurrence of the external cause; Y99.8 Other external cause status

== ENCOUNTER → 2023-07-21 | Outpatient (CLI) | payer OTHER ==
[~2023-07-21] MED LIST changes: +CEPHALEXIN500 M1 PO
[2023-07-21 13:08] LABS: BASO % 0.3 % (0.0-1.0); EOS # 0.1 10*3/uL (0.0-0.4); HEMATOCRIT 38.8 % (37.0-47.0); LYMPH # 2.2 10*3/uL (1.3-4.4); LYMPH % 36.6 % (27.0-41.0); MEAN CELL VOLUME 89.8 fl (81.0-99.0); MEAN CORPUSCULAR HGB 29.4 pg (27.0-31.0); MEAN CORPUSCULAR HGB CONC 32.7 g/dl (33.0-37.0); MEAN PLATELET VOLUME 9.2 fl (9.6-12.3); MONO # 0.6 10*3/uL (0.1-1.0); MONO % 9.4 % (3.0-9.0); NEUT # 3.2 10*3/uL (2.3-7.9); NEUT % 52.5 % (47.0-73.0); PLATELET COUNT AUTOMATED 396 10*3/uL (130-400); RED BLOOD COUNT 4.32 10*6/uL (4.10-5.10); RED CELL DISTRI WIDTH 12.4 % (0-14.5); WHITE BLOOD COUNT 6.1 10*3/uL (4.8-10.8)
[2023-07-21 13:54] LABS: ALKALINE PHOSPHATASE 78 U/L (46-116); BUN 7 mg/dl (9-23); CHLORIDE 106 mmol/L (98-107); POTASSIUM 3.9 mmol/L (3.4-5.1); SGPT/ALT 28 U/L (5-49); TOTAL PROTEIN 7.6 gm/dL (6.0-8.0)
== END | disposition home or self-care (01) ==
LOC: LAB 12:39
PROVIDERS: ATTEND Internal Medicine Hematology & Oncology
DX: C50.912 Malignant neoplasm of unspecified site of left female breast (principal); Z17.0 Estrogen receptor positive status [ER+]

== ENCOUNTER 2023-08-09 16:38 | Emergency (ER) | payer OTHER ==
[~2023-08-09] VITALS: Ht 165.1 cm; Wt 83.9 kg
[2023-08-09] MEDS ORDERED: MEDROL DOSEPAK4 MG PO (17:00)
[2023-08-09] MEDS ORDERED: methylPREDNISolone sod succ 125 MG VIAL IM ONE (17:05)
== END 2023-08-09 17:09 | disposition home or self-care (01) ==
LOC: ED 16:38
DX: J02.9 Acute pharyngitis, unspecified (principal); F32.A Depression, unspecified; F90.9 Attention-deficit hyperactivity disorder, unspecified type; F10.10 Alcohol abuse, uncomplicated; Z98.890 Other specified postprocedural states

== ENCOUNTER 2023-08-17 13:09 | Emergency (ER) | payer OTHER ==
[~2023-08-17] VITALS: Ht 172.7 cm; Wt 83.9 kg
[2023-08-17] MEDS ORDERED: HYDROCODONE-AC1 EAC1 PO (15:21)
== END 2023-08-17 15:37 | disposition home or self-care (01) ==
LOC: ED 13:09
DX: G89.29 Other chronic pain (principal); G89.3 Neoplasm related pain (acute) (chronic); F90.9 Attention-deficit hyperactivity disorder, unspecified type; F10.10 Alcohol abuse, uncomplicated; F32.A Depression, unspecified; Z98.890 Other specified postprocedural states

== ENCOUNTER 2023-08-19 13:47 | Emergency (ER) | payer OTHER ==
[~2023-08-19] VITALS: Ht 172.7 cm; Wt 83.9 kg
[~2023-08-19 13:47] MED LIST changes: +HYDROCODONE-AC1 EAC1 PO
[2023-08-19] MEDS ORDERED: HYDROCODONE-AC1 EAC1 PO (15:22)
== END 2023-08-19 15:27 | disposition home or self-care (01) ==
LOC: ED 13:47
DX: G89.3 Neoplasm related pain (acute) (chronic) (principal); C79.51 Secondary malignant neoplasm of bone; Z85.3 Personal history of malignant neoplasm of breast; Z79.899 Other long term (current) drug therapy

== ENCOUNTER 2023-08-22 14:27 | Emergency (ER) | payer OTHER ==
[~2023-08-22] VITALS: Ht 172.7 cm; Wt 86.2 kg
[2023-08-22] MEDS ORDERED: IBU800 M1 PO (15:04)
[2023-08-22] MEDS ORDERED: PERCOCET 5-3251 EACH PO (15:31)
== END 2023-08-22 15:37 | disposition home or self-care (01) ==
LOC: ED 14:27
DX: C79.81 Secondary malignant neoplasm of breast (principal); M54.50 Low back pain, unspecified; F90.9 Attention-deficit hyperactivity disorder, unspecified type; F32.A Depression, unspecified; F10.10 Alcohol abuse, uncomplicated; Z98.890 Other specified postprocedural states

== ENCOUNTER 2023-08-24 13:25 | Emergency (ER) | payer OTHER ==
[~2023-08-24] VITALS: Ht 172.7 cm; Wt 81.6 kg
[~2023-08-24 13:25] MED LIST changes: +IBU800 M1 PO; +PERCOCET 5-3251 EACH PO
[2023-08-24] MEDS ORDERED: PAIN RELIEVER500 MG PO (13:39)
[2023-08-25] MEDS ORDERED: ENDOCET 5-3251 EACH PO (16:22)
== END 2023-08-24 13:44 | disposition home or self-care (01) ==
LOC: ED 13:25
DX: C79.81 Secondary malignant neoplasm of breast (principal); M54.50 Low back pain, unspecified; F32.A Depression, unspecified; F90.9 Attention-deficit hyperactivity disorder, unspecified type; F10.10 Alcohol abuse, uncomplicated; Z98.890 Other specified postprocedural states

== ENCOUNTER 2023-08-25 14:56 | Emergency (ER) | payer OTHER ==
[~2023-08-25] VITALS: Ht 172.7 cm; Wt 86.2 kg
[~2023-08-25 14:56] MED LIST changes: +PAIN RELIEVER500 MG PO
[2023-08-25] MEDS ORDERED: ENDOCET 5-3251 EACH PO (16:22)
== END 2023-08-25 16:20 | disposition home or self-care (01) ==
LOC: ED 14:56
DX: C79.51 Secondary malignant neoplasm of bone (principal); G89.29 Other chronic pain; M54.50 Low back pain, unspecified; Z76.0 Encounter for issue of repeat prescription; Z85.3 Personal history of malignant neoplasm of breast; Z79.899 Other long term (current) drug therapy

== ENCOUNTER 2023-08-28 14:15 | Emergency (ER) | payer OTHER ==
[~2023-08-28] VITALS: Ht 172.7 cm; Wt 86.2 kg
[~2023-08-28 14:15] MED LIST changes: +ENDOCET 5-3251 EACH PO
== END 2023-08-28 14:54 | disposition home or self-care (01) ==
LOC: ED 14:15
DX: C50.911 Malignant neoplasm of unspecified site of right female breast (principal); C79.89 Secondary malignant neoplasm of other specified sites; M54.50 Low back pain, unspecified; F90.9 Attention-deficit hyperactivity disorder, unspecified type; F32.A Depression, unspecified; F10.10 Alcohol abuse, uncomplicated

== ENCOUNTER 2023-08-31 14:51 | Emergency (ER) | payer OTHER ==
[~2023-08-31] VITALS: Wt 86.2 kg
[2023-08-31] MEDS ORDERED: HYDROCODONE-AC1 EAC1 PO (15:42)
[2023-08-31] MEDS ORDERED: TYLENOL EXTRA500 MG PO (15:42)
[2023-08-31] MEDS ORDERED: Acetaminophen/Hydrocodone 5 MG/325 MG TABLET PO ONE (15:45)
[2023-08-31] MEDS ORDERED: OXYCODONE-ACET1 EAC3 PO (16:04)
== END 2023-08-31 15:50 | disposition home or self-care (01) ==
LOC: ED 14:51
DX: G89.3 Neoplasm related pain (acute) (chronic) (principal); C79.51 Secondary malignant neoplasm of bone; F41.9 Anxiety disorder, unspecified; Z79.899 Other long term (current) drug therapy; Z85.3 Personal history of malignant neoplasm of breast

== ENCOUNTER 2023-09-03 10:16 | Emergency (ER) | payer OTHER ==
[~2023-09-03] VITALS: Ht 172.7 cm; Wt 86.2 kg
[~2023-09-03 10:16] MED LIST changes: +OXYCODONE-ACET1 EAC3 PO; +TYLENOL EXTRA500 MG PO
[2023-09-03] MEDS ORDERED: CYCLOBENZAPRINE10 MG PO (11:27)
[2023-09-03] MEDS ORDERED: Acetaminophen/Oxycodone 5 MG/325 MG TABLET PO ONE (11:30)
== END 2023-09-03 11:38 | disposition home or self-care (01) ==
LOC: ED 10:16
DX: G89.29 Other chronic pain (principal); M54.50 Low back pain, unspecified; F41.9 Anxiety disorder, unspecified; F32.A Depression, unspecified; F90.9 Attention-deficit hyperactivity disorder, unspecified type; F10.10 Alcohol abuse, uncomplicated; Z98.890 Other specified postprocedural states

== ENCOUNTER 2023-11-14 07:53 | Emergency (ER) | payer OTHER ==
[~2023-11-14] VITALS: Ht 172.7 cm; Wt 77.1 kg
[~2023-11-14 07:53] MED LIST changes: +CYCLOBENZAPRINE10 MG PO
[2023-11-14] MEDS ORDERED: Metoclopramide Hydrochloride 10 MG/2 ML AMP IV ONE (08:00)
[2023-11-14] MEDS ORDERED: SODIUM CHLORIDE 0.9% 1,000 ML IV ONE (08:00)
[2023-11-14] MEDS ORDERED: Ketorolac Tromethamine 15 MG/ML VIAL IV ONE (08:00)
[2023-11-14] MEDS ORDERED: diphenhydrAMINE hydrochloride 50 MG/ML VIAL IV ONE (08:00)
[2023-11-14 08:27] LABS: BASO # 0.1 10*3/uL (0.0-0.1); BASO % 1.1 % (0.0-1.0); EOS # 0.1 10*3/uL (0.0-0.4); EOS % 1.1 % (1.0-4.0); HEMATOCRIT 31.6 % (37.0-47.0); LYMPH # 2.1 10*3/uL (1.3-4.4); LYMPH % 39.4 % (27.0-41.0); MEAN CELL VOLUME 88.8 fl (81.0-99.0); MEAN CORPUSCULAR HGB 28.7 pg (27.0-31.0); MEAN CORPUSCULAR HGB CONC 32.3 g/dl (33.0-37.0); MEAN PLATELET VOLUME 9.5 fl (9.6-12.3); MONO # 0.5 10*3/uL (0.1-1.0); MONO % 9.2 % (3.0-9.0); NEUT # 2.6 10*3/uL (2.3-7.9); NEUT % 47.9 % (47.0-73.0); NUCLEATED RED BLOOD CELL 0.6 % (0.0-0.0); PLATELET COUNT AUTOMATED 359 10*3/uL (130-400); RED BLOOD COUNT 3.56 10*6/uL (4.10-5.10); RED CELL DISTRI WIDTH 20.4 % (0-14.5); WHITE BLOOD COUNT 5.4 10*3/uL (4.8-10.8)
[2023-11-14 08:50] LABS: BUN 13 mg/dl (9-23); CHLORIDE 108 mmol/L (98-107); POTASSIUM 3.6 mmol/L (3.4-5.1)
[2023-11-14 08:57] LABS: BILIRUBIN Negative (Negative); BLOOD Negative (Negative); CLARITY Clear (Clear); COLOR Yellow (Yellow); GLUCOSE Negative (Negative); KETONE Negative (Negative); LEUKO ESTERASE Negative (Negative); NITRITE Negative (Negative); UROBILINOGEN 0.2 E.U./dl (0.0-1.0)
[2023-11-14 09:04] LABS: URINE AMPHETAMINES Negative (1000ng/ml); URINE BARBITURATES Negative (200ng/ml); URINE BENZODIAZEPINES Negative (200ng/ml); URINE CANNABINOIDS (THC) Negative (50ng/ml); URINE COCAINE Negative (300ng/ml); URINE METHADONE Negative (300ng/ml); URINE OPIATES Negative (300ng/ml); URINE PHENCYCLIDINE Negative (25ng/ml)
[2023-11-14 09:11] LABS: BACTERIA TRACE
[2023-11-14] MEDS ORDERED: LEVOFLOXACIN750 M2 PO (09:36)
[2023-11-14] MEDS ORDERED: Ondansetron4 MG PO (09:36)
[2023-11-14] MEDS ORDERED: LEVOFLOXACIN 150 ML IV ONE ×2 (09:50→10:03)
== END 2023-11-14 12:00 | disposition home or self-care (01) ==
LOC: ED 07:53
PROVIDERS: Emergency Medicine
DX: R53.1 Weakness (principal); M79.10 Myalgia, unspecified site; R11.2 Nausea with vomiting, unspecified; R19.7 Diarrhea, unspecified; J18.9 Pneumonia, unspecified organism; F90.9 Attention-deficit hyperactivity disorder, unspecified type; F32.A Depression, unspecified; F10.10 Alcohol abuse, uncomplicated; Z98.890 Other specified postprocedural states

== ENCOUNTER 2023-11-20 01:34 | Emergency (ER) | payer OTHER ==
[~2023-11-20 01:34] MED LIST changes: +LEVOFLOXACIN750 M2 PO; +Ondansetron4 MG PO
[2023-11-20 02:20] LABS: HEMATOCRIT 31.5 % (37.0-47.0); MEAN CELL VOLUME 89.7 fl (81.0-99.0); MEAN CORPUSCULAR HGB 28.8 pg (27.0-31.0); MEAN CORPUSCULAR HGB CONC 32.1 g/dl (33.0-37.0); MEAN PLATELET VOLUME 9.4 fl (9.6-12.3); NUCLEATED RED BLOOD CELL 0.1 10*3/uL (0.0-0.0); NUCLEATED RED BLOOD CELL 1.2 % (0.0-0.0); PLATELET COUNT AUTOMATED 326 10*3/uL (130-400); RED BLOOD COUNT 3.51 10*6/uL (4.10-5.10); RED CELL DISTRI WIDTH 20.7 % (0-14.5)
[2023-11-20 02:22] LABS: MANUAL DIFF REFLEX YES
[2023-11-20 02:39] LABS: ALKALINE PHOSPHATASE 158 U/L (46-116); BUN 9 mg/dl (9-23); CHLORIDE 105 mmol/L (98-107); POTASSIUM 3.1 mmol/L (3.4-5.1); SGPT/ALT 14 U/L (5-49); TOTAL PROTEIN 8.6 gm/dL (6.0-8.0)
[2023-11-20 03:11] LABS: PLATELET SUFFICIENCY NORMAL (NORMAL); POLYCHROMASIA SLIGHT; TOTAL CELLS COUNTED 100 #CELLS
[2023-11-20 03:12] LABS: ACANTHOCYTES FEW; ROULEAUX SLIGHT
[2023-11-20] MEDS ORDERED: Ketorolac Tromethamine 30 MG/ML VIAL IM ONE (04:10)
[2023-11-20] MEDS ORDERED: VIBRAMYCIN100 MG PO (06:27)
[2023-11-20] MEDS ORDERED: MELOXICAM15 MG PO (06:35)
[2023-11-20] MEDS ORDERED: POTASSIUM CHLORIDE 20 MEQ TAB PO ONE (06:45)
== END 2023-11-20 07:10 | disposition home or self-care (01) ==
LOC: ED 01:34
PROVIDERS: Internal Medicine
DX: J18.9 Pneumonia, unspecified organism (principal); Z91.199 Patient's noncompliance with other medical treatment and regimen due to unspecified reason; R11.2 Nausea with vomiting, unspecified; R10.9 Unspecified abdominal pain; M54.9 Dorsalgia, unspecified; F90.9 Attention-deficit hyperactivity disorder, unspecified type; F10.10 Alcohol abuse, uncomplicated; F32.A Depression, unspecified; Z98.890 Other specified postprocedural states

== ENCOUNTER 2023-12-23 09:49 | Inpatient (IN) | payer OTHER ==
[~2023-12-23] VITALS: Ht 172.7 cm; Wt 70.8 kg
[~2023-12-23 09:49] MED LIST changes: +MELOXICAM15 MG PO
[2023-12-23] MEDS ORDERED: LORAZEPAM 2 MG IV PRN (10:00)
[2023-12-23] MEDS ORDERED: MORPHINE Sulfate 5 MG IV PRN (10:00)
[2023-12-23] MEDS ORDERED: LORazepam 2 MG/ML VIAL IV PRN (10:05)
[2023-12-23] MEDS ORDERED: MORPHINE Sulfate 2 MG/ML SYR IV PRN (10:05)
[2023-12-23] MEDS ORDERED: MORPHINE Sulfate 100 MG in SODIUM CHLORIDE 0.9% 90 ML IV SCH (10:08)
[2023-12-23] MEDS ORDERED: SODIUM CHLORIDE 0.9% 500 ML IV ONE (11:35)
[2023-12-23] MEDS ORDERED: ATROPINE SULFATE 1% 2 ML BOTTLE SL PRN (17:15)
[2023-12-23 20:00] VITALS: BP 114/60
[2023-12-24] VITALS: BP 85/42
[2023-12-24 02:22] VITALS: BP 72/21
[2023-12-24] MEDS ORDERED: SODIUM CHLORIDE 0.9% 10 ML VIAL IV SCH (04:30)
[2023-12-24] MEDS ORDERED: SODIUM CHLORIDE 0.9% 500 ML IV ONE (04:47)
[2023-12-24] MEDS ORDERED: SODIUM CHLORIDE 0.9% 500 ML IV SCH (04:50)
== END 2023-12-24 06:30 | DRG 189 ==
LOC: 4E 09:49
PROVIDERS: ADMIT Internal Medicine; ATTEND Internal Medicine
DX: J96.01 Acute respiratory failure with hypoxia (principal); C79.81 Secondary malignant neoplasm of breast; J90 Pleural effusion, not elsewhere classified; D64.9 Anemia, unspecified; D63.0 Anemia in neoplastic disease; F32.A Depression, unspecified; Z80.8 Family history of malignant neoplasm of other organs or systems